=== PATIENT | female | born 1970 ===

== ENCOUNTER 2024-08-30 10:04 | Inpatient (IN) | payer OTHER ==
[~2024-08-30] VITALS: Ht 213.4 cm; Wt 90.7 kg
[2024-08-30] MEDS ORDERED: ORENCIA CL125 MG/1 M (10:40)
[2024-08-30] MEDS ORDERED: FOLIC ACID1 MG PO (10:41)
[2024-08-30] MEDS ORDERED: NEURONTIN600 M1 PO (10:41)
[2024-08-30] MEDS ORDERED: ABILIFY2 MG PO (10:42)
[2024-08-30] MEDS ORDERED: CYMBALTA60 MG PO (10:42)
[2024-08-30] MEDS ORDERED: BUSPIRONE HCL15 MG PO (10:43)
[2024-08-30] MEDS ORDERED: TRAZODONE HCL150 MG PO (10:43)
[2024-08-30] MEDS ORDERED: METOTREXATO (10:45)
[2024-09-05] MEDS ORDERED: HEMOSTATIC MATRIX WITH THROMBIN KIT TOP ONE ×2 (09:29→10:45)
[2024-09-05] MEDS ORDERED: CEFAZOLIN SODIUM 1,000 MG VIAL ONE ×2 (09:29→16:43)
[2024-09-05] MEDS ORDERED: METHYLPREDNISOLONE SOD SUCC 125 MG VIAL ONE ×2 (09:29→16:43)
[2024-09-05] MEDS ORDERED: VANCOMYCIN HCL 1,000 MG VIAL ONE (09:30)
[2024-09-05] MEDS ORDERED: METHYLPREDNISOLONE ACETATE 80 MG/ML VIAL ONE (09:30)
[2024-09-05] MEDS ORDERED: 0.9 % SODIUM CHLORIDE 1,000 ML IV SCH (09:45)
[2024-09-05] MEDS ORDERED: ENALAPRILAT DIHYDRATE 1.25 MG/ML VIAL IV PRN (09:45)
[2024-09-05] MEDS ORDERED: PROMETHAZINE HCL 50 MG/ML AMPUL IM PRN (09:45)
[2024-09-05] MEDS ORDERED: ZOFRAN8 MG PO (09:51)
[2024-09-05] MEDS ORDERED: PERCOCET 5-3251 EACH PO (09:51)
[2024-09-05] MEDS ORDERED: COLACE100 MG PO (09:51)
[2024-09-05] MEDS ORDERED: MEDROLPACK PO (09:51)
[2024-09-05] MEDS ORDERED: CEFAZOLIN SODIUM 1,000 MG VIAL IV ONE (10:45)
[2024-09-05] MEDS ORDERED: METHYLPREDNISOLONE SOD SUCC 125 MG VIAL IV ONE ×3 (10:45→12:30)
[2024-09-05] MEDS ORDERED: VANCOMYCIN HCL 1,000 MG VIAL IV ONE (10:45)
[2024-09-05] MEDS ORDERED: METHYLPREDNISOLONE ACETATE 80 MG/ML VIAL IM ONE (10:45)
[2024-09-05] MEDS ORDERED: VANCOMYCIN HCL 1,000 MG VIAL SPEPROC ONE (10:45)
[2024-09-05] MEDS ORDERED: MORPHINE SULFATE 4 MG/ML CARTRIDGE IV SCH (13:00)
[2024-09-05] MEDS ORDERED: DOCUSATE SODIUM 100MG CAP PO SCH (13:00)
[2024-09-05] MEDS ORDERED: BUSPIRONE HCL 15 MG TABLET PO SCH (13:00)
[2024-09-05] MEDS ORDERED: MORPHINE SULFATE 4 MG/ML VIAL IV ONE (15:50)
[2024-09-05] MEDS ORDERED: FAMOtidine 20 MG TABLET PO SCH (17:00)
[2024-09-05] MEDS ORDERED: CEFAZOLIN SODIUM 1,000 MG in 0.9 % SODIUM CHLORIDE 50 ML IV SCH (17:00)
[2024-09-05] MEDS ORDERED: METHYLPREDNISOLONE SOD SUCC 125 MG VIAL IV SCH (17:00)
[2024-09-05 17:25] VITALS: BP 145/90; O2SAT 97
[2024-09-05 20:00] VITALS: BP 142/74; O2SAT 99
[2024-09-05] MEDS ORDERED: ACETAMINOPHEN 500 MG GEL..CAP PO SCH (20:00)
[2024-09-05] MEDS ORDERED: VANCOMYCIN HCL 1,000 MG VIAL IV SCH (21:00)
[2024-09-05] MEDS ORDERED: TRAZODONE HCL 50 MG TABLET PO SCH (21:00)
[2024-09-05 21:26] VITALS: BP 131/81
[2024-09-05 23:30] VITALS: BP 143/83; O2SAT 96
[2024-09-06] MEDS ORDERED: SODIUM CHLORIDE 0.45 % 1,000 ML IV SCH
[2024-09-06] MEDS ORDERED: CEFAZOLIN SODIUM 1,000 MG VIAL ONE (00:11)
[2024-09-06 04:00] VITALS: BP 144/82; O2SAT 100
[2024-09-06] MEDS ORDERED: OxyCODONE HCL 5 MG TABLET (ROXICODONE) PO PRN (06:01)
[2024-09-06 08:38] VITALS: BP 125/79; O2SAT 99
[2024-09-06] MEDS ORDERED: TAMSULOSIN HCL 0.4 MG CAP PO SCH (09:00)
[2024-09-06] MEDS ORDERED: Duloxetine HCl 60 MG CAPSULE.DR PO SCH (09:00)
== END 2024-09-06 10:11 | disposition home or self-care (01) | DRG 473 ==
LOC: O/R 09-05 07:10 → SURH 09-05 10:00 → PED 09-05 15:39
PROVIDERS: ADMIT Orthopaedic Surgery Orthopaedic Surgery of the Spine; ATTEND Orthopaedic Surgery Orthopaedic Surgery of the Spine
PROC: 0RT30ZZ Resection of Cervical Vertebral Disc, Open Approach (ICD-10-PCS; 2024-09-05)
PROC: 0PB40ZZ Excision of Thoracic Vertebra, Open Approach (ICD-10-PCS; 2024-09-05)
PROC: 07DS0ZZ Extraction of Vertebral Bone Marrow, Open Approach (ICD-10-PCS; 2024-09-05)
PROC: 4A1104G Monitoring of Peripheral Nervous Electrical Activity, Intraoperative, Open Approach (ICD-10-PCS; 2024-09-05)
PROC: 0RG20A0 Fusion of 2 or more Cervical Vertebral Joints with Interbody Fusion Device, Anterior Approach, Anterior Column, Open Approach (ICD-10-PCS; principal; 2024-09-05 10:00)
DX: M50.023 Cervical disc disorder at C6-C7 level with myelopathy (principal); M50.022 Cervical disc disorder at C5-C6 level with myelopathy; M50.021 Cervical disc disorder at C4-C5 level with myelopathy; M06.9 Rheumatoid arthritis, unspecified; F41.9 Anxiety disorder, unspecified; Z98.1 Arthrodesis status